=== PATIENT | male | born 1930 | race Caucasian/White ===

== ENCOUNTER 2017-01-06 07:10 | Emergency (ER) | payer MEDICARE, BC ==
[~2017-01-06] VITALS: Ht 177.8 cm; Wt 65.8 kg
[~2017-01-06 07:10] MED LIST: INHA1INH27 INH
--- NOTE | 2017-01-06 07:21 | NUR ---
APPLIED NOSE CLIP PER DR. MENDOZA
--- NOTE | 2017-01-06 07:55 | NUR ---
STAFF INTERPRETER AT BEDSIDE.
--- NOTE | 2017-01-06 08:08 | NUR ---
Meagan orville in EDM - 01/06/17 at 0818 by WIN SEEN BY DR MENDOZA,REFUSED MEDICATION AND TESTS RECOMMENDED BY DR MENDOZA AND DEMANDED AN MRI INSTEAD. WHEN TOLD THAT SHE DOESN'T NEED MRI WHICH IS NOT AVAILABLE ALSO AT THIS TIME, SHE DECIDED TO LEAVE MESQUITE BUT REFUSED TO SIGN.
[2017-01-06 08:14] LABS: BASOPHILS % (AUTO) 0.5 % (0.0-2.0); EOSINOPHILS # (AUTO) 0.1 /CMM (0.0-0.7); EOSINOPHILS % (AUTO) 3.1 % (0.0-6.0); HEMATOCRIT 45 % (39-51); HEMOGLOBIN 15.1 g/dL (13.5-17.5); LYMPHOCYTES # (AUTO) 1.5 /CMM (0.8-4.8); LYMPHOCYTES % (AUTO) 34.5 % (20.0-44.0); MEAN CORPUSCULAR HEMOGLOBIN 31 PG (26.0-33.0); MEAN CORPUSCULAR HGB CONC 34 g/dl (31.0-36.0); MEAN CORPUSCULAR VOLUME 91 fL (80-96); MONOCYTES # (AUTO) 0.4 /CMM (0.1-1.30); MONOCYTES % (AUTO) 7.9 % (2.0-12.0); NEUTROPHILS # (AUTO) 2.4 /CMM (1.8-8.9); PLATELET COUNT (AUTO) 168 /CMM (150-450); RDW COEFFICIENT OF VARIATION 14.6 (11.5-15.0); RED BLOOD CELL COUNT(AUTO) 4.94 MIL/uL (4.5-6.0); WHITE BLOOD COUNT (AUTO) 4.4 K/uL (4.3-11.0)
--- NOTE | 2017-01-06 08:18 | NUR ---
DEPARTED AND DOCUMENTED IN ERROR
[2017-01-06 08:26] LABS: CARBON DIOXIDE 29 mmol/L (21-32); CHLORIDE 109 mmol/L (98-107); GLUCOSE 92 mg/dL (74-106); POTASSIUM 4.1 mmol/L (3.5-5.1); SODIUM SERUM 141 mmol/L (136-145); UREA NITROGEN, BLOOD 23 mg/dL (7-18)
[2017-01-06] MEDS ORDERED: OXYMETAZOLINE HCL NASAL SPRAY 30 ML BOTTLE NS ONE ×2 (08:31→09:00)
[2017-01-06 08:33] LABS: INR 1.02 (0.87-1.13); PROTHROMBIN TIME 10.6 SECS (9.5-12.7)
--- NOTE | 2017-01-06 08:34 | NUR ---
AFRIN NASAL SPRAY SPRAYED IN BOTH NARES.
--- NOTE | 2017-01-06 09:50 | NUR ---
PATIENT AMBULATES THE HALLWAY WITH STABLE GAIT. DR MENDOZA MADE AWARE.
[2017-01-06 09:54] VITALS: BP 132/75
--- NOTE | 2017-01-06 09:56 | NUR ---
Patient discharged FAMILY to home in stable condition. Written and verbal after care instructions given. Patient verbalizes understanding of instruction. PATIENT AMBULATES WITH STEADY GAIT. DENIES DIZZINESS.
== END 2017-01-06 08:15 | disposition left against medical advice (07) ==
LOC: ER 07:13
DX: R04.0 Epistaxis (principal); F17.200 Nicotine dependence, unspecified, uncomplicated
CPT/HCPCS: 36415; 80048-TC; 85025-TC; 85730-TC; A4606; Z7610

== ENCOUNTER 2019-03-30 14:44 | Emergency (ER) | payer MEDICARE, BC ==
[~2019-03-30] VITALS: Ht 177.8 cm; Wt 70.3 kg
--- NOTE | 2019-03-30 14:51 | NUR ---
dr bell at bedside for eval.
[2019-03-30] MEDS ORDERED: TDAP [DIPH/PERTUSSIS/TET] 0.5 ML VIAL IM ONE ×2 (15:20→15:30)
--- NOTE | 2019-03-30 15:33 | NUR ---
pt to radiology for head, cervical and lumbar spine ct via [facility].
--- NOTE | 2019-03-30 16:53 | NUR ---
wound care provided. Patient discharged to home in stable condition. Written and verbal after care instructions given. Patient and Daughter verbalizes understanding of instruction.
[2019-03-30 16:58] VITALS: BP 132/80
== END 2019-03-30 16:59 | disposition home or self-care (01) ==
LOC: ER 14:44
DX: S01.01XA Laceration without foreign body of scalp, initial encounter (principal); S20.412A Abrasion of left back wall of thorax, initial encounter; F17.200 Nicotine dependence, unspecified, uncomplicated; R51 Headache; Z79.899 Other long term (current) drug therapy; W18.39XA Other fall on same level, initial encounter; Y93.89 Activity, other specified; Y92.89 Other specified places as the place of occurrence of the external cause; Y99.8 Other external cause status
CPT/HCPCS: 70450-TC; 72125-TC; 72131-TC; 90715